=== PATIENT | female | born 1955 | race Caucasian/White ===

== ENCOUNTER 2019-05-07 21:42 | Inpatient (IN) | payer OTHER ==
[~2019-05-07] VITALS: Ht 162.6 cm; Wt 98.0 kg
[~2019-05-07 21:42] MED LIST: CALCIUM PO; FISH OIL PO; LACT1CAP40 PO; LOSA25TA25 PO; MULT-516 PO
--- NOTE | 2019-05-07 21:53 | NUR ---
danita RN: unable to obtain bp in traige. pt not tolerating bp cuff after two attempts
[2019-05-07] MEDS ORDERED: SODIUM CHLORIDE FLUSH 10ML SYR IVF ONE (22:00)
[2019-05-07] MEDS ORDERED: ADENOSINE 6 MG/2 ML ONE (22:10)
[2019-05-07] MEDS ORDERED: DILTIAZEM 5 MG/ML, 5ML ONE (22:19)
[2019-05-07] MEDS ORDERED: DILTIAZEM 125 MG in SODIUM CHLORIDE 0.9% 100 ML IV SCH (22:20)
[2019-05-07] MEDS ORDERED: ASPIRIN 81 MG TABLET CHEW ONE (22:30)
[2019-05-07] MEDS ORDERED: ASPIRIN 81 MG TABLET CHEW PO ONE (22:30)
[2019-05-07] MEDS ORDERED: ADENOSINE 6 MG/2 ML IVPush ONE (22:30)
[2019-05-07] MEDS ORDERED: DILTIAZEM 5 MG/ML, 5ML IV ONE (22:30)
[2019-05-07 22:33] LABS: BASOPHILS # (AUTO) 0.02 x10^3/uL (0-0.1); BASOPHILS % (AUTO) 0 % (0-1); EOSINOPHILS # (AUTO) 0.28 x10^3/uL (0-0.4); EOSINOPHILS % (AUTO) 4 % (1-7); LYMPHOCYTES # (AUTO) 1.42 x10^3/uL (1-3.4); LYMPHOCYTES % (AUTO) 18 % (22-44); MD NO; MEAN CORPUSCULAR HEMOGLOBIN 30.2 pg (27.0-34.8); MEAN CORPUSCULAR HGB CONC 33.8 g/dL (32.4-35.8); MEAN CORPUSCULAR VOLUME 89.5 fL (80-100); MONOCYTES # (AUTO) 0.38 x10^3/uL (0.2-0.8); MONOCYTES % (AUTO) 5 % (2-9); NEUTROPHILS # (AUTO) 5.82 x10^3/uL (1.8-6.8); NEUTROPHILS % (AUTO) 74 % (42-75); PLATELET COUNT 263 x10^3/uL (130-400); RED BLOOD COUNT 5.27 x10^6/uL (3.82-5.3)
[2019-05-07 22:37] LABS: ALBUMIN 3.7 g/dL (3.4-5.0); ANION GAP 9 mmol/L (5-15); CHLORIDE 108 mmol/L (98-107); CREATININE 1.01 mg/dL (0.55-1.02)
[2019-05-07 22:41] LABS: TROPONIN I < 0.015 ng/mL (0.000-0.045)
[2019-05-07] MEDS ORDERED: LOSA50TA14 PO (22:54)
[2019-05-07 22:55] LABS: T4 (THYROXINE) 10.9 mcg/dL (4.8-13.9)
[2019-05-07] MEDS ORDERED: ONDANSETRON 2MG/ML, 2ML ONE (23:32)
--- NOTE | 2019-05-07 23:35 | NUR ---
PROVIDER GAVE VERBAL ORDERS TO VALIDATION MANAGER TO INCREASE PT CARDIZEM DRIP TO 20ML/HR FROM 10ML/HR
[2019-05-08] MEDS ORDERED: ONDANSETRON 2MG/ML, 2ML IVPush ONE
[2019-05-08] MEDS ORDERED: SODIUM CHLORIDE FLUSH 10ML SYR IVF PRN
[2019-05-08] MEDS ORDERED: METOPROLOL 1 MG/ML, 5ML ONE ×2 (00:17→00:30)
[2019-05-08] MEDS: METOPROLOL 1 MG/ML, 5ML IVPush PRN ×2 (00:20→00:32)
[2019-05-08 01:04] VITALS: BP 146/91
[2019-05-08] MEDS ORDERED: ACETAMINOPHEN 325 MG TABLET PO PRN (01:30)
[2019-05-08] MEDS ORDERED: METOPROLOL 1 MG/ML, 5ML IVPush PRN (01:30)
[2019-05-08] MEDS ORDERED: morphine SULFATE 10 MG/ML, 1ML IVPush PRN (01:30)
[2019-05-08] MEDS ORDERED: DOCUSATE 100 MG CAPSULE PO PRN (01:30)
[2019-05-08] MEDS ORDERED: TEMAZEPAM 15 MG CAPSULE PO PRN (01:30)
[2019-05-08] MEDS: DILTIAZEM 125 MG in SODIUM CHLORIDE 0.9% 100 ML IV SCH ×2 (02:00→02:52)
[2019-05-08] MEDS: ENOXAPARIN 100 MG/ML SQ SCH ×2 (02:03→14:03)
[2019-05-08 05:16] LABS: TROPONIN I 0.035 ng/mL (0.000-0.045)
[2019-05-08 06:55] VITALS: BP 127/68
[2019-05-08] MEDS ORDERED: LOSARTAN 50MG TABLET PO SCH (09:00)
[2019-05-08 10:51] LABS: TROPONIN I 0.082 ng/mL (0.000-0.045)
[2019-05-08 13:30] VITALS: BP 121/74
[2019-05-08] MEDS ORDERED: DILT180C53 PO (14:14)
[2019-05-08 15:16] LABS: TROPONIN I 0.117 ng/mL (0.000-0.045)
[2019-05-09] MEDS ORDERED: DILTIAZEM 125 MG in SODIUM CHLORIDE 0.9% 100 ML IV SCH (02:00)
[2019-05-09] MEDS ORDERED: DILTIAZEM CD 180 MG CAP.ER.24H PO SCH (09:00)
== END 2019-05-08 15:22 | disposition home or self-care (01) | DRG 308 ==
LOC: ED 22:29 → 5SO 05-08 00:44 → ED 05-08 01:02 → 5SO 05-08 01:02
PROVIDERS: ADMIT Family Medicine; ATTEND Internal Medicine Infectious Disease
PROC: 5A2204Z Restoration of Cardiac Rhythm, Single (ICD-10-PCS; principal; 2019-05-08)
DX: I48.91 Unspecified atrial fibrillation (principal); J96.01 Acute respiratory failure with hypoxia; D68.59 Other primary thrombophilia; I47.1 Supraventricular tachycardia; E66.01 Morbid (severe) obesity due to excess calories; I10 Essential (primary) hypertension; Z88.0 Allergy status to penicillin; Z88.2 Allergy status to sulfonamides; Z88.8 Allergy status to other drugs, medicaments and biological substances; Z68.37 Body mass index [BMI] 37.0-37.9, adult; I48.92 Unspecified atrial flutter
CPT/HCPCS: 36415; 71045; 80048; 82040; 83880; 84436; 84443; 84484; 85025; 93005; 93306; 96374; 96375; G0378; J0153; J1650; J2405

== ENCOUNTER 2019-05-10 18:16 | Inpatient (IN) | payer OTHER ==
[~2019-05-10] VITALS: Ht 162.6 cm; Wt 97.8 kg
[~2019-05-10 18:16] MED LIST changes: +DILT180C53 PO; +LOSA50TA14 PO
[2019-05-10] MEDS ORDERED: DILTIAZEM 5 MG/ML, 5ML ONE (18:58)
[2019-05-10] MEDS ORDERED: DILTIAZEM 5 MG/ML, 5ML IVPush ONE (19:00)
[2019-05-10] MEDS ORDERED: SODIUM CHLORIDE FLUSH 10ML SYR IVF ONE (19:00)
[2019-05-10 19:03] LABS: BASOPHILS # (AUTO) 0.02 x10^3/uL (0-0.1); BASOPHILS % (AUTO) 0 % (0-1); EOSINOPHILS % (AUTO) 3 % (1-7); LYMPHOCYTES # (AUTO) 1.43 x10^3/uL (1-3.4); LYMPHOCYTES % (AUTO) 20 % (22-44); MD NO; MEAN CORPUSCULAR HEMOGLOBIN 30.2 pg (27.0-34.8); MEAN CORPUSCULAR HGB CONC 33.6 g/dL (32.4-35.8); MEAN CORPUSCULAR VOLUME 89.8 fL (80-100); MEAN PLATELET VOLUME 7.9 fL (7.4-10.4); MONOCYTES # (AUTO) 0.36 x10^3/uL (0.2-0.8); MONOCYTES % (AUTO) 5 % (2-9); NEUTROPHILS # (AUTO) 5.16 x10^3/uL (1.8-6.8); NEUTROPHILS % (AUTO) 72 % (42-75); PLATELET COUNT 268 x10^3/uL (130-400); RED BLOOD COUNT 5.34 x10^6/uL (3.82-5.3); RED CELL DISTRIBUTION WIDTH 14.1 % (9.6-15.2)
--- NOTE | 2019-05-10 19:07 | NUR ---
REPORT RECEIVED FROM JENI BAKER. PT RESTING ON GURNEY, MEDICATED PER APR. CALL LIGHT WITHIN REACH, ALL SAFETY MEASURES AT PLACE.
[2019-05-10 19:09] LABS: ALBUMIN 3.8 g/dL (3.4-5.0); ANION GAP 10 mmol/L (5-15); CALCIUM 9.1 mg/dL (8.5-10.1); CHLORIDE 110 mmol/L (98-107)
--- NOTE | 2019-05-10 19:10 | NUR ---
GAVE REPORT TO JENI CHAIDEZ.
[2019-05-10 19:14] LABS: ALANINE AMINOTRANSFERASE 46 U/L (12-78); ALKALINE PHOSPHATASE 153 U/L (45-117); BILIRUBIN,TOTAL 0.5 mg/dL (0.2-1.0); CREATININE 1.11 mg/dL (0.55-1.02); T4 (THYROXINE) 10.5 mcg/dL (4.8-13.9)
[2019-05-10 19:18] LABS: INTERNATIONAL NORMALIZED RATIO 0.93 (0.93-1.1); PROTHROMBIN TIME 9.9 Seconds (9.6-11.5)
[2019-05-10] MEDS ORDERED: DILTIAZEM 5 MG/ML, 5ML IV ONE (19:30)
[2019-05-10] MEDS: DILTIAZEM 125 MG in SODIUM CHLORIDE 0.9% 100 ML IV SCH (20:16)
--- NOTE | 2019-05-10 20:28 | NUR ---
PT DENIES ANY PAIN AT THIS TIME. FAMILY UPDATED ON CURRENT VISITATION POLICY FOR ADMITTED PATIENTS.
[2019-05-10] MEDS ORDERED: TEMAZEPAM 15 MG CAPSULE PO PRN (20:30)
[2019-05-10] MEDS ORDERED: NITROGLYCERIN 0.4 MG BOTTLE (25 TABS) SL PRN (20:30)
[2019-05-10] MEDS ORDERED: DOCUSATE 100 MG CAPSULE PO PRN (20:30)
[2019-05-10] MEDS ORDERED: DILTIAZEM 125 MG in SODIUM CHLORIDE 0.9% 100 ML IV SCH (20:30)
[2019-05-10] MEDS ORDERED: LABETALOL 5MG/ML, 20ML IVPush PRN (20:30)
[2019-05-10] MEDS ORDERED: LIDODERM 5% PATCH TD PRN (20:30)
[2019-05-10 21:09] VITALS: BP 141/87
[2019-05-10] MEDS: ENOXAPARIN 100 MG/ML SQ SCH (21:19)
[2019-05-11 00:38] VITALS: BP 132/83
[2019-05-11 01:30] LABS: TROPONIN I 0.032 ng/mL (0.000-0.045)
[2019-05-11 06:58] VITALS: BP 129/85
[2019-05-11 07:06] LABS: BASOPHILS # (AUTO) 0.08 x10^3/uL (0-0.1); BASOPHILS % (AUTO) 1 % (0-1); EOSINOPHILS # (AUTO) 0.18 x10^3/uL (0-0.4); EOSINOPHILS % (AUTO) 3 % (1-7); LYMPHOCYTES # (AUTO) 1.67 x10^3/uL (1-3.4); LYMPHOCYTES % (AUTO) 23 % (22-44); MD NO; MEAN CORPUSCULAR HEMOGLOBIN 30.6 pg (27.0-34.8); MEAN CORPUSCULAR HGB CONC 33.7 g/dL (32.4-35.8); MEAN CORPUSCULAR VOLUME 90.7 fL (80-100); MEAN PLATELET VOLUME 7.8 fL (7.4-10.4); MONOCYTES % (AUTO) 6 % (2-9); NEUTROPHILS # (AUTO) 5.01 x10^3/uL (1.8-6.8); NEUTROPHILS % (AUTO) 68 % (42-75); PLATELET COUNT 241 x10^3/uL (130-400); RED CELL DISTRIBUTION WIDTH 14.2 % (9.6-15.2)
[2019-05-11 07:15] LABS: ANION GAP 7 mmol/L (5-15); CALCIUM 8.8 mg/dL (8.5-10.1); CHLORIDE 110 mmol/L (98-107); CREATININE 1.07 mg/dL (0.55-1.02)
[2019-05-11 07:19] LABS: TROPONIN I < 0.015 ng/mL (0.000-0.045)
[2019-05-11] MEDS: DILTIAZEM 125 MG in SODIUM CHLORIDE 0.9% 100 ML IV SCH (07:51)
[2019-05-11] MEDS: ENOXAPARIN 100 MG/ML SQ SCH ×2 (07:57→20:20)
[2019-05-11] MEDS ORDERED: Vitamin D PO (08:00)
[2019-05-11] MEDS ORDERED: Probiotic PO (08:00)
[2019-05-11] MEDS ORDERED: sertraline PO (08:00)
[2019-05-11] MEDS ORDERED: REGADENOSON 0.4 MG/5 ML SYRINGE ONE (09:18)
[2019-05-11] MEDS ORDERED: ACETAMINOPHEN 325 MG TABLET ONE (13:17)
[2019-05-11] MEDS: ACETAMINOPHEN 325 MG TABLET PO PRN (13:20)
[2019-05-11 13:44] VITALS: BP 133/79
[2019-05-11] MEDS: DILTIAZEM 60 MG TABLET PO SCH ×2 (15:57→20:20)
[2019-05-11 16:00] LABS: CHOL/HDL RATIO 4.9; LDL/HDL RATIO 2.5 (0.5-3.0)
[2019-05-11 20:03] VITALS: BP 170/89
[2019-05-12 06:14] VITALS: BP 168/98
[2019-05-12] MEDS: DILTIAZEM 60 MG TABLET PO SCH ×4 (06:21→20:16)
[2019-05-12 07:50] VITALS: BP 136/84
[2019-05-12] MEDS: ENOXAPARIN 100 MG/ML SQ SCH ×2 (07:54→08:40)
[2019-05-12] MEDS ORDERED: MIDAZOLAM 1 MG/ML, 5ML ONE (09:52)
[2019-05-12] MEDS ORDERED: TICAGRELOR 90 MG TABLET ONE (09:53)
[2019-05-12] MEDS ORDERED: BIVALIRUDIN 250 MG ONE ×2 (09:53→11:11)
[2019-05-12] MEDS ORDERED: VERAPAMIL 2.5 MG/ML, 2ML ONE (09:53)
[2019-05-12] MEDS ORDERED: LIDOCAINE 2%, 20ML ONE ×2 (09:53→10:43)
[2019-05-12] MEDS ORDERED: HEPARIN 1,000 UNITS/ML, 10ML ONE ×2 (09:53→10:03)
[2019-05-12] MEDS ORDERED: FENTANYL PF 100 MCG/2ML ONE (09:53)
[2019-05-12] MEDS ORDERED: DIPHENHYDRAMINE 50 MG/ML, 1ML ONE (10:23)
[2019-05-12] MEDS ORDERED: METOPROLOL 1 MG/ML, 5ML ONE (10:58)
[2019-05-12] MEDS ORDERED: ONDANSETRON 2MG/ML, 2ML ONE ×2 (11:08→11:09)
[2019-05-12] MEDS ORDERED: BIVALIRUDIN 250 MG in SODIUM CHLORIDE 0.9% 50 ML IV SCH (11:10)
[2019-05-12] MEDS ORDERED: ASPIRIN 325 MG TABLET EC ONE (11:15)
[2019-05-12] MEDS ORDERED: ONDANSETRON 2MG/ML, 2ML IVPush PRN (11:30)
[2019-05-12] MEDS: SODIUM CHLORIDE 0.9% 1,000 ML IV SCH ×2 (12:17→19:10)
[2019-05-12 14:31] VITALS: BP 128/83
[2019-05-12] MEDS: ACETAMINOPHEN 325 MG TABLET PO PRN (15:51)
[2019-05-12 17:50] VITALS: BP 162/85
[2019-05-12] MEDS ORDERED: HYDROcodone/APAP 5/325 TABLET PO ONE (18:00)
[2019-05-12 19:02] VITALS: BP 135/84
[2019-05-12] MEDS: TICAGRELOR 90 MG TABLET PO SCH (20:16)
[2019-05-12] MEDS ORDERED: ATORVASTATIN 40 MG TABLET PO SCH (21:00)
[2019-05-13 01:13] VITALS: BP 143/78
[2019-05-13] MEDS: SODIUM CHLORIDE 0.9% 1,000 ML IV SCH ×2 (03:10→11:35)
[2019-05-13] MEDS: ACETAMINOPHEN 325 MG TABLET PO PRN ×2 (04:17→11:53)
[2019-05-13 06:20] VITALS: BP 177/83
[2019-05-13] MEDS: DILTIAZEM 60 MG TABLET PO SCH ×3 (06:22→16:41)
[2019-05-13 06:43] LABS: BASOPHILS # (AUTO) 0.03 x10^3/uL (0-0.1); BASOPHILS % (AUTO) 0 % (0-1); EOSINOPHILS # (AUTO) 0.17 x10^3/uL (0-0.4); EOSINOPHILS % (AUTO) 2 % (1-7); LYMPHOCYTES # (AUTO) 1.06 x10^3/uL (1-3.4); LYMPHOCYTES % (AUTO) 11 % (22-44); MD NO; MEAN CORPUSCULAR HEMOGLOBIN 30.9 pg (27.0-34.8); MEAN CORPUSCULAR HGB CONC 34.3 g/dL (32.4-35.8); MEAN CORPUSCULAR VOLUME 90.1 fL (80-100); MEAN PLATELET VOLUME 7.5 fL (7.4-10.4); MONOCYTES # (AUTO) 0.41 x10^3/uL (0.2-0.8); MONOCYTES % (AUTO) 4 % (2-9); NEUTROPHILS # (AUTO) 7.79 x10^3/uL (1.8-6.8); NEUTROPHILS % (AUTO) 82 % (42-75); PLATELET COUNT 272 x10^3/uL (130-400); RED BLOOD COUNT 5.06 x10^6/uL (3.82-5.3)
[2019-05-13 06:52] LABS: ANION GAP 10 mmol/L (5-15); CHLORIDE 107 mmol/L (98-107); CREATININE 1.07 mg/dL (0.55-1.02)
[2019-05-13] MEDS ORDERED: ASPIRIN 81 MG TABLET EC PO SCH (09:00)
[2019-05-13] MEDS: TICAGRELOR 90 MG TABLET PO SCH (10:02)
[2019-05-13 11:50] VITALS: BP 152/81
[2019-05-13 13:59] VITALS: BP 141/73
[2019-05-13] MEDS ORDERED: ASPI81TA45 PO (14:59)
[2019-05-13] MEDS ORDERED: TICA90TA PO (14:59)
[2019-05-13] MEDS ORDERED: ATOR40TA78 PO (14:59)
[2019-05-13] MEDS ORDERED: METO200T47 PO (15:28)
[2019-05-13] MEDS ORDERED: APIX5TAB PO (17:19)
== END 2019-05-13 18:14 | disposition home or self-care (01) | DRG 247 ==
LOC: ED 19:15 → EDIP 19:22 → ED 19:58 → 5SO 20:43
PROVIDERS: ADMIT Family Medicine; ATTEND Family Medicine
PROC: 027034Z Dilation of Coronary Artery, One Artery with Drug-eluting Intraluminal Device, Percutaneous Approach (ICD-10-PCS; principal; 2019-05-12)
PROC: B2111ZZ Fluoroscopy of Multiple Coronary Arteries using Low Osmolar Contrast (ICD-10-PCS; 2019-05-12)
DX: I21.4 Non-ST elevation (NSTEMI) myocardial infarction (principal); D68.59 Other primary thrombophilia; I47.1 Supraventricular tachycardia; E78.5 Hyperlipidemia, unspecified; I10 Essential (primary) hypertension; I25.10 Atherosclerotic heart disease of native coronary artery without angina pectoris; I34.0 Nonrheumatic mitral (valve) insufficiency; I45.10 Unspecified right bundle-branch block; I48.0 Paroxysmal atrial fibrillation; Z87.891 Personal history of nicotine dependence
CPT/HCPCS: 36415; 93017; 93454; 96374; 99291; C9600; J3490; 71045; 78452; 80048; 80053; 80061; 83735; 84100; 84436; 84443; 84484; 85025; 85610; 85730; 93005; 99156; 99157; C1760; C1769; C1894; G0378; J0583; J1644; J1650; J2250; J2405; J2785; J3010; A9502; C1725; C1874; C1887; C9898; J1200; J7030; Q9967